=== PATIENT | female | born 1970 | race Caucasian/White ===

== ENCOUNTER 2016-04-22 07:24 | Emergency (ER) | payer BC, OTHER ==
[2016-04-22 07:48] VITALS: BMI 28.3
--- NOTE | 2016-04-22 08:11 | PDOC ---
History of Present Illness - General History Source: Patient Exam Limitations: No Limitations - History of Present Illness Initial Comments: 04/22/16 08:55 The patient is a 46 year old female with no significant past medical history who presents to the emergency department with right upper quadrant pain for 1 day. The patient describes her pain as an intermittent twisting sensation in the RUQ, non-radiating. She states her pain is a 7/10 in severity. Her pain started yesterday morning after she ate breakfast. She states the pain got slightly better throughout the day, however after she ate dinner the pain became intense again. She also reports some right sided back pain. She denies any associated nausea, vomiting, or diarrhea. The patietn denies any hematuria , frequency, or dysuria. She went to [facility] emergency department yesterday but the wait was too long. The patient denies any recent illness, fevers, or chills. Her LMP was 04/10/16. <Alona Carpenter - Last Filed: 04/22/16 08:55> <Giovanny Wei - Last Filed: 04/22/16 14:20> - General Chief Complaint: Pain, Acute Stated Complaint: RUQ PAIN Time Seen by Provider: 04/22/16 07:55 Past History <Alona Carpenter - Last Filed: 04/22/16 08:55> - Past Medical History Other medical history: denies - Psycho/Social/Smoking Cessation Hx Suicidal Ideation: No Smoking History: Never smoked <Giovanny Wei - Last Filed: 04/22/16 14:20> - Past Medical History Allergies/Adverse Reactions: Allergies Allergy/AdvReac Type Severity Reaction Status Date / Time No Known Allergies Allergy Verified 04/22/16 07:44 Home Medications: Ambulatory Orders Pantoprazole Sodium [Protonix -] 40 mg PO DAILY #14 tablet.ec 04/22/16 Review of Systems - Review of Systems Able to Perform ROS?: Yes Comments:: 04/22/16 08:56 CONSTITUTIONAL: No fever, no chills, no fatigue EYES: No visual changes ENT: No ear pain, no sore throat CARDIOVASCULAR: No chest pain, no palpitations RESPIRATORY: No cough, no SOB GI: +RUQ pain. No nausea, no vomiting, no constipation, no diarrhea GENITOURINARY: No dysuria, no frequency, no hematuria MUSCULOSKELETAL: No back pain, no joint pain, no myalgias SKIN: No rash NEURO: No headache <Alona Carpenter - Last Filed: 04/22/16 08:55> *Physical Exam - Vital Signs Last Vital Signs Temp Pulse Resp BP Pulse Ox 97.6 F 79 16 138/79 100 04/22/16 07:44 04/22/16 07:44 04/22/16 07:44 04/22/16 07:44 04/22/16 07:44 - Physical Exam Comments: 04/22/16 08:56 CONSTITUTIONAL: Well-appearing; well-nourished; in no apparent distress HEAD: Normocephalic; atraumatic EYES: PERRL; EOM intact ENMT: External appears normal; normal oropharynx NECK: Supple; non-tender; no cervical lymphadenopathy CARD: Normal S1, S2; no murmurs, rubs, or gallops RESP: Normal chest excursion with respiration; breath sounds clear and equal bilaterally; no wheezes, rhonchi, or rales ABD: +RUQ tenderness to palpation, +positive [place] sign. Soft, non-distended ; no palpable organomegaly, no palpable hernias EXT: Normal ROM in all four extremities; non-tender to palpation; distal pulses intact SKIN: Warm, dry, no rash NEURO: No focal neurological deficiencies. <Alona Carpenter - Last Filed: 04/22/16 08:55> - Vital Signs Last Vital Signs Temp Pulse Resp BP Pulse Ox 97.6 F 79 16 138/79 100 04/22/16 07:44 04/22/16 07:44 04/22/16 07:44 04/22/16 07:44 04/22/16 07:44 <Giovanny Wei - Last Filed: 04/22/16 14:20> ED Treatment Course - LABORATORY CBC & Chemistry Diagram: 04/22/16 08:54 04/22/16 08:54 <Giovanny Wei - Last Filed: 04/22/16 14:20> Medical Decision Making - Medical Decision Making 04/22/16 11:07 Patient is a 46-year-old female who presents with atraumatic right upper quadrant pain that is brought on postprandially for the past 24 hours. On initial evaluation, patient was noted to be afebrile, hemodynamically stable. There is no evidence of scleral icterus and a positive Cifuentes's sign. CBC/CMP/ lipase/UA within normal limit. Right upper quadrant ultrasound shows no evidence of acute gallbladder or liver pathology. Will obtain CT of abdomen and pelvis with by mouth and IV contrast. We'll administer H2 blockers. Will reassess. 04/22/16 14:19 Patient is resting comfortably, with minimal discomfort, tolerates by mouth. CT that and pelvis reveals no evidence of acute abdominal pathology. Will discharge with trial of Protonix with GI follow-up further evaluation and treatment. <Giovanny Wei - Last Filed: 04/22/16 14:20> *DC/Admit/Observation/Transfer - Attestations Scribe Attestion: 04/22/16 08:11 Documentation prepared by Alona Carpenter, acting as medical doctor md/medical director for Giovanny Wei MD. <Alona Carpenter - Last Filed: 04/22/16 08:55> - Attestations Physician Attestion: 04/22/16 11:06 The documentation was prepared by the scribe under my direct supervision. I have reviewed the documentation which correctly represents the findings, medical decision-making and critical action taken by me. <Giovanny Wei - Last Filed: 04/22/16 14:20> Diagnosis at time of Disposition: Abdominal pain Qualifiers: Abdominal location: right upper quadrant Qualified Code(s): R10.11 - Right upper quadrant pain - Discharge Dispostion Disposition: HOME Condition at time of disposition: Stable - Referrals Referrals: Rehan Peterson MD [Primary Care Provider] - Tanner Moran DO [Staff Physician] - - Patient Instructions Printed Discharge Instructions: DI for Abdominal Pain-Adult
[2016-04-22] MEDS ORDERED: KETOROLAC TROMETHAMINE 30 MG/1 ML VIAL IVPUSH ONE (08:30)
[2016-04-22] MEDS ORDERED: SODIUM CHLORIDE 1,000 ML IV STA (08:31)
[2016-04-22] MEDS ORDERED: KETOROLAC TROMETHAMINE 30 MG/1 ML VIAL ONE (08:56)
[2016-04-22 09:11] LABS: URINE APPEARANCE CLEAR; URINE BILIRUBIN NEGATIVE (NEGATIVE); URINE BLOOD NEGATIVE (NEGATIVE); URINE COLOR YELLOW; URINE GLUCOSE (UA) NEGATIVE (NEGATIVE); URINE KETONE NEGATIVE (NEGATIVE); URINE LEUK ESTERASE NEGATIVE (NEGATIVE); URINE NITRITE NEGATIVE (NEGATIVE); URINE PROTEIN NEGATIVE (NEGATIVE); URINE UROBILINOGEN NEGATIVE E.U./dl (0.2-1.0)
[2016-04-22 09:27] LABS: ALBUMIN 3.7 g/dl (3.4-5.0); ANION GAP 9 (8-16); BILIRUBIN,TOTAL 0.5 mg/dL (0.2-1.0); CALCIUM 8.9 mg/dL (8.5-10.1); CO2 27 mmol/L (21-32); CREATININE 0.7 mg/dL (0.55-1.02); GLUCOSE,RANDOM 78 mg/dL (74-106); SGOT/AST 13 U/L (15-37); SGPT/ALT 33 U/L (12-78); TOT PROT 7.1 g/dl (6.4-8.2)
[2016-04-22 09:28] LABS: ALK PHOS 71 U/L (45-117)
[2016-04-22 09:40] LABS: INR 1.03 (0.82-1.09); PROTHROMBIN TIME (PATIENT) 11.3 SEC (9.98-11.88)
[2016-04-22 10:02] LABS: EOSINOPHIL 0.8 % (0-4.5); MCH 28.1 pg (25.7-33.7); MCHC 32.5 g/dl (32.0-36.0); MEAN CELL VOLUME 86.4 fl (80-96); MEAN PLT VOLUME 9.7 fl (7.5-11.1); NEUTROPHILS 58.2 % (42.8-82.8); PLATELET COUNT 279 K/MM3 (134-434); RDW 14.1 % (11.6-15.6); WHITE BLOOD COUNT 6.6 K/mm3 (4.0-10.0)
[2016-04-22] MEDS ORDERED: FAMOTIDINE 20 MG/50 ML IVPB 50 ML IVPB ONE ×2 (11:06→12:12)
[2016-04-22 14:37] VITALS: BP 122/86; PULSE 69; TEMP 98.1
== END 2016-04-22 14:36 | disposition home or self-care (01) ==
LOC: JER 07:24
PROC: 3E033GC Introduction of Other Therapeutic Substance into Peripheral Vein, Percutaneous Approach (ICD-10-PCS; principal; 2016-04-22)
DX: R10.11 Right upper quadrant pain (principal)
CPT/HCPCS: 36415; 74177-TC; 76705-TC; 80053; 81003; 83690; 84703; 85025; 85610; 87086; 99284-25; Q9967

== ENCOUNTER 2022-12-14 00:38 | Emergency (ER) | payer OTHER ==
[2022-12-14 00:49] VITALS: BP 169/79; PULSE 90; RESP 18; TEMP 97.8; BMI 29.2
[2022-12-14] MEDS ORDERED: ACETAMINOPHEN 1000 MG/100 ML BAG IVPB ONE (01:27)
[2022-12-14] MEDS ORDERED: SODIUM CHLORIDE 0.9% 500 ML INFUS.BAG IV ONE (01:27)
[2022-12-14] MEDS ORDERED: ACETAMINOPHEN INJECTION 100 ML IVPB ONE (01:36)
[2022-12-14 02:06] LABS: PH,URINE 5.5 (5.0-8.0); URINE APPEARANCE CLEAR; URINE BILIRUBIN NEGATIVE (NEGATIVE); URINE COLOR YELLOW; URINE GLUCOSE (UA) NEGATIVE (NEGATIVE); URINE KETONE TRACE (NEGATIVE); URINE LEUK ESTERASE NEGATIVE (NEGATIVE); URINE NITRITE NEGATIVE (NEGATIVE); URINE PROTEIN NEGATIVE (NEGATIVE); URINE UROBILINOGEN 0.2 mg/dL (0.2-1.0)
[2022-12-14 02:07] LABS: HEMATOCRIT 33.7 % (32.4-45.2); HEMOGLOBIN 11.3 GM/dL (10.7-15.3); LYMPH % 39.1 % (8-40); MCH 27.7 pg (25.7-33.7); MCHC 33.5 g/dl (32.0-36.0); MEAN CELL VOLUME 82.6 fl (80-96); MEAN PLT VOLUME 9.1 fl (7.5-11.1); MONO % 7.3 % (3.8-10.2); NEUT % 51.6 % (42.8-82.8); PLATELET COUNT 342 10^3/uL (134-434); RBC 4.07 M/mm3 (3.60-5.2); RDW 14.3 % (11.6-15.6); WHITE BLOOD COUNT 6.7 K/mm3 (4.0-10.0)
[2022-12-14 02:33] LABS: INR 1.03 (0.83-1.09); POTASSIUM 4.1 mmol/L (3.5-5.1)
[2022-12-14 02:35] LABS: ALBUMIN 3.7 g/dl (3.4-5.0); CALCIUM 9.1 mg/dL (8.5-10.1)
[2022-12-14 02:36] LABS: ACTIVATED PTT 33.2 SECONDS (25.2-36.5); BLOOD UREA NITROGEN 14.8 mg/dL (7-18)
[2022-12-14 02:38] LABS: CREATININE 0.7 mg/dL (0.55-1.3)
[2022-12-14 02:40] LABS: BILIRUBIN,TOTAL 0.2 mg/dL (0.2-1); TOT PROT 7.9 g/dl (6.4-8.2)
== END 2022-12-14 06:58 | disposition home or self-care (01) ==
LOC: JER 00:38
PROC: 3E033NZ Introduction of Analgesics, Hypnotics, Sedatives into Peripheral Vein, Percutaneous Approach (ICD-10-PCS; principal; 2022-12-14)
DX: R10.31 Right lower quadrant pain (principal); R11.0 Nausea; R10.11 Right upper quadrant pain
CPT/HCPCS: 36415; 74177-TC; 80053; 81003; 83690; 84703; 85025; 85610; 85730; 87086; 93005; 93010; 99285-25; Q9967

== ENCOUNTER 2023-10-14 00:36 | Emergency (ER) | payer OTHER ==
[2023-10-14 00:45] VITALS: BP 154/77; PULSE 102; RESP 16; TEMP 97.8; BMI 28.3
[2023-10-14] MEDS ORDERED: ONDANSETRON *ODT* 4 MG TABLET ONE (02:09)
[2023-10-14] MEDS: ONDANSETRON *ODT* 4 MG TABLET SL ONE (02:15)
== END 2023-10-14 03:05 | disposition home or self-care (01) ==
LOC: JER 00:36
DX: S00.83XA Contusion of other part of head, initial encounter (principal); S60.221A Contusion of right hand, initial encounter; R11.0 Nausea; W01.198A Fall on same level from slipping, tripping and stumbling with subsequent striking against other object, initial encounter
CPT/HCPCS: 70450-TC; 99284-25; Q0162